=== PATIENT | female | born 1985 | race Caucasian/White ===

== ENCOUNTER 2016-09-29 06:43 | Outpatient (CLI) | payer OTHER | END 2016-09-29 06:44 | disposition home or self-care (01) | DX: Z00.00 Encounter for general adult medical examination without abnormal findings (principal); R53.83 Other fatigue ==

== ENCOUNTER 2017-01-21 08:00 | Outpatient (CLI) | payer OTHER | END 2017-01-21 08:01 | disposition home or self-care (01) | DX: R31.9 Hematuria, unspecified (principal) ==

== ENCOUNTER 2019-04-20 08:00 | Outpatient (CLI) | payer OTHER ==
[2019-04-20 12:27] LABS: BASOPHILS # (AUTO) 0.1 10^3/uL (0.0-0.1); BASOPHILS % (AUTO) 0.8 %; EOSINOPHILS # (AUTO) 0.2 10^3/uL (0.0-0.7); EOSINOPHILS % (AUTO) 2.3 %; HGB - HEMOGLOBIN 13.6 g/dL (12.0-16.0); LYMPHOCYTES # (AUTO) 2.5 10^3/uL (1.5-3.5); LYMPHOCYTES % (AUTO) 29.2 %; MEAN CORPUSCULAR HEMOGLOBIN 25.8 pg (27.0-31.0); MEAN CORPUSCULAR HGB CONC 30.2 g/dL (32.0-36.0); MEAN CORPUSCULAR VOLUME 85.4 fL (81.0-99.0); MEAN PLATELET VOLUME 9.6 fL (7.9-10.8); MONOCYTES # (AUTO) 0.4 10^3/uL (0.0-1.0); MONOCYTES % (AUTO) 4.3 %; NEUTROPHILS # (AUTO) 5.4 10^3/uL (1.5-6.6); NEUTROPHILS % (AUTO) 63.1 %; PLT - PLATELET COUNT 382 10^3/uL (130-450); RED BLOOD COUNT 5.28 10^6/uL (4.20-5.40); RED CELL DISTRIBUTION WIDTH 14.6 % (12.0-15.0); WHITE BLOOD COUNT 8.6 x10^3/uL (4.8-10.8)
[2019-04-20 12:56] LABS: ALBUMIN 4.2 g/dL (3.2-5.5); ALBUMIN/GLOBULIN RATIO 1.1 (1.0-2.2); ALKALINE PHOSPHATASE 65 IU/L (42-121); ALT ALANINE AMINOTRANSFERASE 19 IU/L (10-60); AST ASPARTATE AMINOTRANSFERASE 22 IU/L (10-42); BILIRUBIN,TOTAL 0.5 mg/dL (0.2-1.0); BUN - BLOOD UREA NITROGEN 10 mg/dL (6-20); CALCIUM 9.3 mg/dL (8.5-10.3); CARBON DIOXIDE - CO2 24 mmol/L (21-32); CHLORIDE 108 mmol/L (101-111); CHOL/HDL RATIO 4.8 (<4.4); CHOLESTEROL 210 mg/dL; CREATININE 0.6 mg/dL (0.4-1.0); GFR - MDRD 114 (>89); GLUCOSE 106 mg/dL (70-100); HDL CHOLESTEROL 44 mg/dL; LDL CHOLESTEROL,CALCULATED 146 mg/dL; LDL/HDL RATIO 3.3 (<4.4); SODIUM 141 mmol/L (135-145); VLDL CHOLESTEROL 20 mg/dL
== END 2019-04-20 23:59 | disposition home or self-care (01) ==
LOC: LAB.WCP 08:00
PROVIDERS: ATTEND Physician Assistant Medical
DX: Z00.00 Encounter for general adult medical examination without abnormal findings (principal); R20.2 Paresthesia of skin
CPT/HCPCS: 36415; 80053; 80061; 82607; 83721; 84443; 85025

== ENCOUNTER 2020-11-25 16:41 | Outpatient (CLI) | payer OTHER | END 2020-11-25 16:42 | disposition home or self-care (01) | LOC: COV 16:41 | PROVIDERS: ATTEND Family Medicine | DX: R05 Cough (principal); R06.02 Shortness of breath; M79.10 Myalgia, unspecified site; R53.83 Other fatigue; R68.83 Chills (without fever); R07.0 Pain in throat; R43.8 Other disturbances of smell and taste; R09.81 Nasal congestion; J34.89 Other specified disorders of nose and nasal sinuses; Z20.822 Contact with and (suspected) exposure to COVID-19 ==

== ENCOUNTER 2021-11-04 08:00 | Outpatient (CLI) | payer OTHER | END 2021-11-04 23:59 | LOC: LAB.N 08:00 | PROVIDERS: ATTEND Family Medicine | DX: L02.31 Cutaneous abscess of buttock (principal); L02.213 Cutaneous abscess of chest wall | CPT/HCPCS: 87070; 87205 ==

== ENCOUNTER 2022-01-07 23:32 | Emergency (ER) | payer OTHER ==
[2022-01-07 23:42] VITALS: BP 170/98
--- NOTE | 2022-01-07 23:51 | ED Physician Documentation ---
History of Present Illness - Stated complaint Stated Complaint: LT CALF BUMP/PX - Chief complaint Chief Complaint: Ext Problem - History obtained from History obtained from: Patient - Additonal information Additional information: Patient is a 36-year-old female with a history of hypertension presenting for evaluation of a redness to the left calf that she noticed 2 days ago. She has noticed that the redness has increased in size and at times she feels tenderness to the area. She denies any known injury. She has a new puppy and other dogs but denies any known scratches or bites to the area. No fevers, rashes elsewhere, chest pain, difficulty breathing. Review of Systems Constitutional: denies: Fever Nose: denies: Congestion Cardiac: denies: Chest pain / pressure, Palpitations Respiratory: denies: Dyspnea, Cough GI: denies: Abdominal Pain Skin: reports: Rash Musculoskeletal: denies: Back pain Neurologic: denies: Headache PD PAST MEDICAL HISTORY - Past Medical History Past Medical History: Yes Cardiovascular: Hypertension Respiratory: Asthma Neuro: None Endocrine/Autoimmune: None GI: GERD PRICING DIRECTOR: None : None HEENT: None Psych: None Musculoskeletal: None Derm: Rosacea - Past Surgical History Past Surgical History: Yes General: Cholecystectomy, Other /PRICING DIRECTOR: section, Tubal ligation - Present Medications Home Medications: Ambulatory Orders Medication Instructions Recorded Confirmed Losartan [Cozaar] 50 mg PO DAILY 01/07/22 01/07/22 cephALEXin [Keflex] 500 mg PO Q6H #28 cap 01/07/22 - Allergies Allergies/Adverse Reactions: Allergies Allergy/AdvReac Type Severity Reaction Status Date / Time ranitidine HCl * Allergy Intermediate EPISTAXIS Verified 01/07/22 23:42 [From Zantac] erythromycin base Allergy Unknown UNKNOWN Verified 01/07/22 23:42 [Erythromycin Base] Penicillins Allergy Unknown UNKNOWN Verified 01/07/22 23:42 - Social History Does the pt smoke?: No Smoking Status: Never smoker Does the pt drink ETOH?: No Does the pt have substance abuse?: No - Immunizations Immunizations are current?: Yes - POLST Patient has POLST: No PD ED PE NORMAL - General General: Alert and oriented X 3, No acute distress, Well developed/nourished - HEENT HEENT: Atraumatic, Moist mucous membranes - Neck Neck: Supple, no meningeal sign - Cardiac Cardiac: RRR, Strong equal pulses - Respiratory Respiratory: No respiratory distress, Clear bilaterally - Extremities Extremities: Other (1 cm area of dark erythema with no underlying fluctuance, no's visible skin breaks, mild surrounding erythema, no lymphangitis, intact distal pulses, compartments of leg are soft, no bony tenderness) PD ED PE EXPANDED - Extremities ERIC LE visual: 1 - rash 2 - rash Results - Vitals Vitals: Vital Signs - 24 hr 01/07/22 23:34 Temperature 35.8 C L Heart Rate 100 Respiratory 17 Rate Blood Pressure 170/98 H O2 Saturation 97 Oxygen O2 Source Room air PD MEDICAL DECISION MAKING - ED course ED course: Patient presenting for evaluation of rash to the left calf. No signs of visible skin breaks. No lymphangitic spread. No palpable fluctuance to suggest abscess. Patient denies concern for foreign body. Appears to have soft tissue skin infection. No history of MRSA and wound is not purulent or weeping. We will start patient on Keflex. Patient is aware of return precautions. Departure - Departure Disposition: 01 Home, Self Care Clinical Impression: Cellulitis of left leg without foot Condition: Stable Instructions: ED Infec Skin Cellulitis Prescriptions: cephALEXin [Keflex] 500 mg PO Q6H #28 cap Comments: Audra you were evaluated for a rash to your left calf. I believe this is a skin infection. At this time I do not feel an abscess which would require making a small cut in the skin and allowing any infection to drain out. Please use the antibiotic that I have prescribed. A prescription was sent to the [facility] in [place]. If it anytime it seems that the rash seems to be worsening, you develop swelling, fever or any other concerns please return to the emergency department. Discharge Date/Time: 01/07/22 23:59
[2022-01-07] MEDS: cephALEXin 250 MG CAPSULE PO STA (23:56)
== END 2022-01-07 23:59 | disposition home or self-care (01) ==
LOC: ED 23:32
DX: L03.116 Cellulitis of left lower limb (principal); I10 Essential (primary) hypertension
CPT/HCPCS: 99282

== ENCOUNTER 2022-12-07 08:27 | Outpatient (CLI) | payer OTHER ==
[2022-12-07 13:03] LABS: BASOPHILS # (AUTO) 0.1 10^3/uL (0.0-0.1); BASOPHILS % (AUTO) 1.1 %; EOSINOPHILS # (AUTO) 0.3 10^3/uL (0.0-0.7); EOSINOPHILS % (AUTO) 3.6 %; HCT - HEMATOCRIT 41.6 % (37.0-47.0); HGB - HEMOGLOBIN 12.4 g/dL (12.0-16.0); LYMPHOCYTES # (AUTO) 2.7 10^3/uL (1.5-3.5); LYMPHOCYTES % (AUTO) 29.5 %; MEAN CORPUSCULAR HEMOGLOBIN 25.3 pg (27.0-31.0); MEAN CORPUSCULAR HGB CONC 29.8 g/dL (32.0-36.0); MEAN CORPUSCULAR VOLUME 84.9 fL (81.0-99.0); MEAN PLATELET VOLUME 9.5 fL (7.9-10.8); MONOCYTES # (AUTO) 0.5 10^3/uL (0.0-1.0); MONOCYTES % (AUTO) 5.1 %; NEUTROPHILS # (AUTO) 5.4 10^3/uL (1.5-6.6); NEUTROPHILS % (AUTO) 60.3 %; PLT - PLATELET COUNT 374 10^3/uL (130-450); RED CELL DISTRIBUTION WIDTH 14.6 % (12.0-15.0)
[2022-12-07 13:35] LABS: ALBUMIN 3.6 g/dL (3.2-5.5); ALBUMIN/GLOBULIN RATIO 0.9 (1.0-2.2); ALKALINE PHOSPHATASE 75 IU/L (42-121); ALT ALANINE AMINOTRANSFERASE 17 IU/L (10-60); AST ASPARTATE AMINOTRANSFERASE 19 IU/L (10-42); BILIRUBIN,TOTAL 0.3 mg/dL (0.2-1.0); BUN - BLOOD UREA NITROGEN 9 mg/dL (6-20); CALCIUM 8.6 mg/dL (8.5-10.3); CARBON DIOXIDE - CO2 26 mmol/L (21-32); CHLORIDE 105 mmol/L (101-111); CHOL/HDL RATIO 5.3 (<4.4); CHOLESTEROL 205 mg/dL; CREATININE 0.6 mg/dL (0.4-1.0); GFR - MDRD 112 (>89); GLUCOSE 137 mg/dL (70-100); HDL CHOLESTEROL 39 mg/dL; LDL CHOLESTEROL,CALCULATED 138 mg/dL; LDL/HDL RATIO 3.5 (<4.4); POTASSIUM 4.3 mmol/L (3.5-5.0); SODIUM 136 mmol/L (135-145); TOTAL PROTEIN 7.6 g/dL (6.7-8.2); TRIGLYCERIDES 142 mg/dL; VLDL CHOLESTEROL 28 mg/dL
[2022-12-07 13:40] LABS: THYROID STIMULATING HORMONE 3.12 uIU/mL (0.34-5.60)
== END 2022-12-07 08:28 | disposition home or self-care (01) ==
LOC: LAB.N 08:27
PROVIDERS: ATTEND Physician Assistant Medical
DX: Z00.00 Encounter for general adult medical examination without abnormal findings (principal)
CPT/HCPCS: 36415; 80053; 80061; 83721; 84443; 85025

== ENCOUNTER 2022-12-17 08:29 | Outpatient (CLI) | payer OTHER ==
[2022-12-17 12:17] LABS: ESTIMATED AVERAGE GLUCOSE 151 mg/dL (70-100); HEMOGLOBIN A1c% 6.9 % (4.27-6.07)
== END 2022-12-17 08:30 | disposition home or self-care (01) ==
LOC: LAB.N 08:29
PROVIDERS: ATTEND Physician Assistant Medical
DX: R73.9 Hyperglycemia, unspecified (principal)
CPT/HCPCS: 36415; 83036

== ENCOUNTER 2023-03-03 08:34 | Outpatient (CLI) | payer OTHER ==
--- NOTE | 2023-03-03 09:16 | SLEEP CARE CONSULTATION ---
Information from patient questionnaire entered by Sujey Quinones. I have reviewed and concur with the information entered by Sujey Quinones. This document represents the service I personally performed and the decisions made by me, Maddi Arce ARNP. History of Present Illness Service Date and Time: 03/03/2023 0834 Reason for Visit: New patient Chief Complaint: reports: Snoring, Fatigue, Frequent awakenings at night Date of Onset: SNORING YRS FATIGUE AROUND 1 YR FREQUENT AWAKENINGS 6MONTHS Usual bedtime: 10-11PM Time it takes to fall asleep: 5MINS Snores at night: Yes Observed to quit breathing while asleep: No Sleeps alone due to snoring: No Number of times waking at night: 6-7 Reasons for waking at night: reports: Gasping for air (occasionally), Bathroom, Other (UNKNOWN; uncomfortable). denies: Choking, Snoring Toss, Turn, or Twitch while sleeping: Yes (because of being uncomfortable) Recalls having dreams: Yes Usually gets out of bed at: 7AM Feels refreshed in the morning: No Morning headache: No Sleepy or fatigued during the day: Yes Ever fallen asleep while driving: No Takes day naps: Yes (1 time a week; 2-3 hours long) Dreams during day naps: No Prior sleep studies: No Additional HPI information: I had the pleasure of seeing KALI SIM today regarding the possibility of her having a sleep disorder. Her current complaints are snoring, fatigue and frequent night awakenings. She is setting up to get bariatric surgery, gastric bypass, and comes in to have evaluation for sleep apnea. She states she has snored for a long time. She does not wake up feeling refreshed. She is waking up 5-7 times a night for the bathroom and to shift her position due to being uncomfortable. She states she normally does not nap but about once a week gets so tired she will go to sleep for a couple hours. She has woke up gasping for air with her heart pounding in the past. She denies waking up from her snoring. She denies every being told that she stops breathing at night when sleeping. - Parasomnia Symptoms Ever been unable to move upon waking from sleep: No Walks in sleep: No Talks in sleep: Yes Ever acted out dreams in sleep: Yes ("petting the pillow" when dreaming of petting one of her animals) Ever felt weak in the knees when startled or emotional: Yes (has not fallen to ground) Bothered by creepy, crawly, restless sensations in legs: No Problems with memory or concentration: No Subjective Initial [place] Sleepiness Scale score: 9 (03/03/23) Past Medical History Past Medical History: reports: Hypertension, Diabetes, Anxiety, Asthma, Other (MONITORED PULMONARY STENOSIS, OBESITY IN PROCESS OF GASTRIC BYPASS; cholecystectomy) Social History The patient's occupation is a SE. Patient is and lives in [place]. Have you smoked in the past 12 months: No Years of smokin Quit date: 2011 Alcohol use: Yes Alcohol amount and frequency: 1 DRINK MAYBE 1 X A YR Caffeine use: Yes Caffeine amount and frequency: 1-2 CUPS PER DAY SOMETIMES ESPRESSO Family History Family history of sleep disordered breathing: No Allergies and Home Medications Known drug allergies: Yes (as listed) Drug allergies reviewed: Yes Home medication list reviewed: Yes Allergy and home medication list: Allergies ranitidine HCl * [From Zantac] Allergy (Intermediate, Verified 03/02/23 13:11) EPISTAXIS erythromycin base [Erythromycin Base] Allergy (Unknown, Verified 03/02/23 13:11) UNKNOWN Penicillins Allergy (Unknown, Verified 03/02/23 13:11) UNKNOWN Medications: Metformin Losartan Flovent Tylenol, prn Review of Systems Weight gain over past 5 years: 50 Cardiovascular: reports: high blood pressure, palpitations, leg or foot swelling Respiratory: reports: shortness of breath, wheeze Gastrointestinal: reports: heartburn, nausea, diarrhea Urinary: reports: urgency Neurological: reports: headaches Psychiatric: reports: anxiety, claustrophobia Ear/Nose/Throat: reports: wisdom teeth removed. denies: sinus problems, tonsillectomy Endocrine: reports: sluggishness Musculoskeletal: reports: back pain Immunologic: reports: allergies to food or environment Physical Exam Vital signs obtained and entered by: SUJEY Adkins MA Blood Pressure: 138/84 (LEFT ARM) Cuff size: long Heart Rate: 82 O2 Saturation: 98 Height: 5 ft 4 in Weight: 325 lb 9.6 oz Body Mass Index: 55.8 BMI Classification: Morbidly Obese Neck circumference: 17.5 Nostrils: patent to airflow Mouth and throat: narrow oropharynx Soft palate: long Hard palate: normal Uvula: normal Uvula visualization: 25% Mallampati Class III Tongue: normal in size Tonsils: 2+ Neck: normal w/o lymphadenopathy or thyromegaly Heart: regular rate and rhythm Lungs: clear bilaterally Impression and Plan 1. Suspected Obstructive Sleep Apnea-Hypopnea Syndrome, as suggested by a history of loud and irregular snoring, gasping or choking in sleep, frequent awakening during the night, unrefreshed sleep, and excessive daytime sleepiness. Narrow oropharynx and obesity are common predisposing factors for obstructive sleep apnea-hypopnea syndrome. I recommend proceeding to polysomnography to confirm the diagnosis and to assess severity. If the patient has significant sleep disordered breathing, a manual CPAP titration study will also be performed to find the optimal treatment pressure. I informed the patient of what the sleep studies involve and after some discussion, obtained agreement to proceed. The pathophysiology of obstructive sleep apnea-hypopnea syndrome was discussed with the patient and health risks of cardiovascular and cerebrovascular disease if not treated. Risks of drowsy driving discussed in detail and patient advised to avoid long distance driving and to hide puller at the first sign of drowsiness. Patient agreed to plan. * Schedule polysomnography +- manual CPAP titration study and return in 1-2 weeks after the study to discuss result and initiate therapy. * Avoid long distance driving or driving when feeling sleepy. * Avoid alcohol, sedative and muscle relaxant around bedtime. * Attempt to lose weight. * Review instructions provided by trained office staff on how to prepare for the sleep study. * Return for follow-up after sleep study completed. Counseling Topics: Weight loss health impact Visit Type: In Office Time Spent with Patient (minutes): 30 Provider Statement: I spent 100% of the Face to Face Visit with the patient with greater than 50% spent counseling the patient and coordination of care.
[2023-03-03 09:17] VITALS: BP 138/84
== END 2023-03-03 08:35 | disposition home or self-care (01) ==
LOC: SC 08:34
PROVIDERS: ATTEND Nurse Practitioner Family
DX: R06.83 Snoring (principal); R53.83 Other fatigue; G47.8 Other sleep disorders; G47.10 Hypersomnia, unspecified; E66.01 Morbid (severe) obesity due to excess calories; Z68.43 Body mass index [BMI] 50.0-59.9, adult; Z87.891 Personal history of nicotine dependence
CPT/HCPCS: 99203; 99212

== ENCOUNTER 2023-04-15 08:25 | Outpatient (CLI) | payer OTHER ==
[2023-04-15 12:04] LABS: BASOPHILS # (AUTO) 0.1 10^3/uL (0.0-0.1); BASOPHILS % (AUTO) 0.8 %; EOSINOPHILS # (AUTO) 0.4 10^3/uL (0.0-0.7); EOSINOPHILS % (AUTO) 3.5 %; HCT - HEMATOCRIT 43.4 % (37.0-47.0); HGB - HEMOGLOBIN 13.4 g/dL (12.0-16.0); LYMPHOCYTES # (AUTO) 2.5 10^3/uL (1.5-3.5); LYMPHOCYTES % (AUTO) 24.1 %; MEAN CORPUSCULAR HEMOGLOBIN 25.8 pg (27.0-31.0); MEAN CORPUSCULAR HGB CONC 30.9 g/dL (32.0-36.0); MEAN CORPUSCULAR VOLUME 83.5 fL (81.0-99.0); MEAN PLATELET VOLUME 9.6 fL (7.9-10.8); MONOCYTES # (AUTO) 0.5 10^3/uL (0.0-1.0); MONOCYTES % (AUTO) 4.3 %; NEUTROPHILS # (AUTO) 7.1 10^3/uL (1.5-6.6); PLT - PLATELET COUNT 455 10^3/uL (130-450); RED CELL DISTRIBUTION WIDTH 14.8 % (12.0-15.0); WHITE BLOOD COUNT 10.5 x10^3/uL (4.8-10.8)
[2023-04-16 20:07] LABS: FOLATE HEMOLYSATE 378.1 ng/mL (Not Estab.); FOLATE RBC 894 ng/mL (>498); HEMATOCRIT 42.3 % (34.0-46.6)
== END 2023-04-15 08:26 | disposition home or self-care (01) ==
LOC: LAB.N 08:25
PROVIDERS: ATTEND Surgery
DX: I10 Essential (primary) hypertension (principal); E66.01 Morbid (severe) obesity due to excess calories; Z68.43 Body mass index [BMI] 50.0-59.9, adult; E11.9 Type 2 diabetes mellitus without complications; E78.9 Disorder of lipoprotein metabolism, unspecified
CPT/HCPCS: 36415; 82746; 82747; 84425; 84443; 85014; 85025

== ENCOUNTER 2023-04-16 08:00 | Outpatient (CLI) | payer OTHER ==
[2023-04-16 13:33] LABS: THYROID STIMULATING HORMONE 2.61 uIU/mL (0.34-5.60)
== END 2023-04-16 23:59 | disposition home or self-care (01) ==
LOC: LAB.N 08:00
PROVIDERS: ATTEND Physician Assistant Medical
DX: E11.9 Type 2 diabetes mellitus without complications (principal); I10 Essential (primary) hypertension; E78.9 Disorder of lipoprotein metabolism, unspecified; E66.01 Morbid (severe) obesity due to excess calories; Z68.43 Body mass index [BMI] 50.0-59.9, adult
CPT/HCPCS: 36415; 82746; 84443

== ENCOUNTER 2023-04-16 19:01 | Outpatient (CLI) | payer OTHER | END 2023-04-16 19:02 | disposition home or self-care (01) | LOC: SC 19:01 | PROVIDERS: ATTEND Nurse Practitioner Family | DX: G47.33 Obstructive sleep apnea (adult) (pediatric) (principal); E66.01 Morbid (severe) obesity due to excess calories; Z68.43 Body mass index [BMI] 50.0-59.9, adult | CPT/HCPCS: 95810 ==

== ENCOUNTER 2023-04-27 11:31 | Outpatient (CLI) | payer OTHER ==
--- NOTE | 2023-04-27 15:48 | SLEEP CARE CONSULTATION ---
Information from patient questionnaire entered by Larisa Quinones. I have reviewed and concur with the information entered by Larisa Quinones. This document represents the service I personally performed and the decisions made by me, Maddi Arce ARNP. History of Present Illness Service Date and Time: 04/27/2023 1131 Initial [place] Sleepiness Scale score: 9 (03/03/23) Current [place] Sleepiness Scale score: 9 (04/27/23) Additional HPI information: KALI SIM returns via video telehealth visit for follow up and results of the recently performed polysomnography. I explained the pathophysiology behind obstructive sleep apnea. We then spent quite a bit of time discussing different treatment options. For mild obstructive sleep apnea, surgery and oral appliance are alternatives to nasal CPAP therapy but in moderate or severe cases, nasal CPAP is the most effective and reliable treatment. I reviewed the impact of weight changes on sleep apnea and strongly recommended losing weight. After some discussion, the patient opted to go with the nasal CPAP therapy. Nasal autoCPAP set at 4-15 cmH20 will be ordered with rationale explained. A manual titration study will be ordered if unable to find optimal pressure with office adjustments. I explained how CPAP machine works and what to expect when using the machine. Using CPAP every night in order to get used to it was emphasized. Patient advised to put CPAP mask on before getting into bed so as not to fall asleep without CPAP. To assist acclimation to CPAP use, it could also be used for a short time during day while reading or watching TV. The patient was instructed to call the CPAP supplier to discuss any mechanical problem that may occur. If the mask given is uncomfortable or is difficult to keep on through the night even with adjustment, contact the CPAP supplier as many will replace with another mask style if notified before 30 days. If snoring or perceives is not getting enough air or too much air from the machine, notify this office. Patient does not drink alcohol. Patient was cautioned about risks of drowsy driving until sleepiness symptoms resolve. Patient denies drowsy driving. Sleep Study - Results Type of Sleep Study: Polysomnography (COMPLETED 04/16/23) Prior sleep studies: No Polysomnography/Home Sleep Study results: IMPRESSION: The quality of the study is good. The patient had normal sleep efficiency. Despite moderate sleep fragmentation, the sleep architecture was also normal. Respiratory monitoring showed severe obstructive sleep apnea-hypopnea (AHI = 33.8) associated with frequent arousals, oxyhemoglobin desaturation and moderate hypoxia (harsha oxygen saturation of 64%). The respiratory events occurred independently of sleep stage and body position (supine AHI = 34.0; non-supine = 34.00). Snore was loud in intensity. There was no significant periodic leg movement of sleep. Cardiac rhythm was normal sinus rhythm without significant arrhythmia. No abnormal behavior (parasomnia) observed during the night. Allergies and Home Medications Known drug allergies: Yes (as listed) Drug allergies reviewed: Yes Home medication list reviewed: Yes (no changes) Allergy and home medication list: Allergies ranitidine HCl * [From Zantac] Allergy (Intermediate, Verified 04/27/23 11:07) EPISTAXIS erythromycin base [Erythromycin Base] Allergy (Unknown, Verified 04/27/23 11:07) UNKNOWN Penicillins Allergy (Unknown, Verified 04/27/23 11:07) UNKNOWN Review of Systems Review of systems same as previous: Yes (no changes) Physical Exam Vital signs obtained and entered by: LARISA Adkins MA Height: 5 ft 4 in (PER PT) Weight: 317 lb (PER PT) Body Mass Index: 54.3 BMI Classification: Morbidly Obese Impression and Plan 1. Obstructive Sleep Apnea-Hypopnea Syndrome, severe, with lowest oxygen saturation of 64%. Obviously this is the cause of the patients symptoms of unrefreshed sleep, and excessive daytime sleepiness. Positive pressure therapy could benefit hypertension, diabetes, asthma and anxiety. As mentioned above, the patient will be started on nasal autoCPAP therapy with pressure set at 4-15 cmH2O. A manual titration study will be completed if unable to find optimal treatment pressure with office adjustments. Compliance guidelines also reviewed. A copy of compliance guidelines will be given for reference at check out. 2. Hypoxemia, moderate, with a harsha oxygen saturation of 64% and 223.5 minutes spent under 90%. Her baseline oxygen saturation was low normal with an average oxygen saturation of 88%. * Nasal auto CPAP therapy, pressure at 4-15 cm H2O. * Attempt to lose weight. * Avoid alcohol consumption near bedtime. * Avoid supine sleep until using CPAP. * The patient is again cautioned about driving until sleepiness completely resolves. * Return one month after CPAP obtained. I will assess response to therapy and compliance at that time. Counseling Topics: Weight loss health impact Visit Type: Telehealth Video Video Type: Doximity Patient Location: Home Location of Provider: Office Patient agrees and consents to this telehealth visit type: Yes Patient agrees to have their insurance billed: Yes Time Spent with Patient (minutes): 18 Provider Statement: I spent 100% of the Telehealth Video Call with the patient with greater than 50% spent counseling the patient and coordination of care.
== END 2023-04-27 11:32 | disposition home or self-care (01) ==
LOC: SC 11:31
PROVIDERS: ATTEND Nurse Practitioner Family
DX: G47.33 Obstructive sleep apnea (adult) (pediatric) (principal); R09.02 Hypoxemia; E66.01 Morbid (severe) obesity due to excess calories; Z68.43 Body mass index [BMI] 50.0-59.9, adult

== ENCOUNTER 2023-07-08 08:34 | Outpatient (CLI) | payer OTHER ==
--- NOTE | 2023-07-08 09:03 | Sleep Patient Instructions ---
Sleep Center Visit Summary - Patient Visit Information Reason for Visit: First compliance visit with PAP therapy - Patient Instructions Additional Instructions: You were here for follow up of CPAP therapy. You will be continued on CPAP therapy with pressure at 8-12 cmH2O. Please let us know if the pressure change is uncomfortable and we can make further adjustments of the pressure. You should follow up with sleep care in 1-2 months. Continue to try to lose weight. You may contact us sooner for any questions or concerns. - Clinic Information Contact: [facility] [address] [place] [id number] [email or web address] T: [phone]
--- NOTE | 2023-07-08 09:08 | SLEEP CARE CONSULTATION ---
Information from patient questionnaire entered by Larisa Quinones. I have reviewed and concur with the information entered by Larisa Quinones. This document represents the service I personally performed and the decisions made by me, Maddi Arce ARNP. History of Present Illness Service Date and Time: 07/08/2023 0834 Previous diagnosis: Severe, Obstructive Sleep Apnea-Hypopnea Syndrome AHI: 33.8 (04/2023) Reason for follow up: first compliance (SET UP 05/04/23) Equipment type: CPAP (ResMed Airsense 10, s/u 04/2023) Equipment obtained from: Other ([facility]; got initial supplies) Mask style: Full face Mask brand: [employer] (Simplus) Backup mask available: No (will keep old mask when replaced) Last cushion change: rotating mask cushions Prior sleep studies: No Type of Sleep Study: Polysomnography (COMPLETED 04/16/23) HPI additional information: KALI SIM was diagnosed to have severe, AHI 33.8, obstructive sleep apnea- hypopnea syndrome and returned today for CPAP therapy first compliance follow- up. Sleep Study - Results Type of Sleep Study: Polysomnography (COMPLETED 04/16/23) Prior sleep studies: No CPAP Compliance Data - Data Reviewed with Patient Average duration of nightly device use: 6 HRS 37 MINS Compliance rate %: 73 (05/11/23-07/05/23; ) Current pressure setting (cmH2O): 4-15 (median 8.1, avg 11.8, max 12.9) Average residual AHI: 1.1 Central apnea: 0.1 Obstructive apnea: 0.3 Average large leak: 2.8 L/min Subjective Missed days of use due to: reports: illness, other (irritation) Patient concerns: reports: mask discomfort, air blowing in eyes, mask leak noise, dry mouth, nose, throat. denies: aerophagia, condensation in mask/hose, nasal congestion, epistaxis Observed to snore while using device: No Current pressure setting perceived as: comfortable On therapy, patient: reports: other (having less headaches). denies: drowsiness while driving Initial [place] Sleepiness Scale score: 9 (03/03/23) Current [place] Sleepiness Scale score: 6 Allergies and Home Medications Known drug allergies: Yes (as listed) Drug allergies reviewed: Yes Home medication list reviewed: Yes (prilosec, multivitamin, calcium) Allergy and home medication list: Allergies ranitidine HCl * [From Zantac] Allergy (Intermediate, Verified 07/07/23 09:31) EPISTAXIS erythromycin base [Erythromycin Base] Allergy (Unknown, Verified 07/07/23 09:31) UNKNOWN Penicillins Allergy (Unknown, Verified 07/07/23 09:31) UNKNOWN Review of Systems Review of systems same as previous: No (gastric bypass 06/21/2023) Physical Exam Vital signs obtained and entered by: MADDI CONSTANTINO Blood Pressure: 116/81 Cuff size: wrist (left) Heart Rate: 77 O2 Saturation: 95 Height: 5 ft 4 in (PER PT) Weight: 292 lb Weight change since last visit: 25 lb loss Body Mass Index: 50.1 BMI Classification: Morbidly Obese Impression and Plan 1. Obstructive Sleep Apnea-Hypopnea Syndrome, severe, with good treatment compliance and good apnea control. On CPAP therapy, the patient has been having less headaches. She tolerated the CPAP well in the beginning but lately has had more difficulties but states the pressure has been comfortable. The patients pressure will be changed to autoCPAP 8-12 cmH20 to reflect pressure being used. Patient advised to contact me if pressure change is uncomfortable so that it can be adjusted. Goals for apnea control discussed. She has had more air leaking into her eyes, mask leak noises and discomfort. She is also in the last few nights waking up with very dry mouth. She states her humidity is set on automatic. It appears that she is getting some large mask leaks. She has been rotating through 3 masks. I advised her to reach out to her DME to get new supplies since mask cushions will wear out need to be changed regularly. This could be contributing to the mask leak noises, air blowing in her eyes and dry mouth. She voiced understanding and agreement with plan of care. Patient's apnea severity and rationale for treatment to reduce apnea, improve sleep quality and reduce cardiovascular and cerebrovascular events was reviewed. I also reviewed the benefit of consistent device use of CPAP for hypertension, diabetes and anxiety. 2. Obesity, unspecified. Currently patients BMI is 50.1. She had a gastric bypass surgery on 06/21/2023 to assist with weight loss and has lost 25 pounds since we last saw her in the office. Obesity increases the risk of apnea, CPAP pressure requirements and overall health risks especially cardiovascular and diabetes. Thus patient is advised to continue to try to lose weight. * Change auto CPAP pressure to 8-12 cmH2O * Notify me if snoring with mask or feeling that the pressure is too much or too little * Continue to try to lose weight * Call this office if any problems using CPAP * Return for follow up in 1-2 months, or sooner if concerns arise Counseling Topics: Spare mask, Weight loss health impact Follow up with Sleep Care in: 1-2 months Visit Type: In Office Time Spent with Patient (minutes): 27 Provider Statement: I spent 100% of the Face to Face Visit with the patient with greater than 50% spent counseling the patient and coordination of care.
[2023-07-08 09:16] VITALS: BP 116/81; O2SAT 95
== END 2023-07-08 08:35 | disposition home or self-care (01) ==
LOC: SC 08:34
PROVIDERS: ATTEND Nurse Practitioner Family
DX: G47.33 Obstructive sleep apnea (adult) (pediatric) (principal); E66.01 Morbid (severe) obesity due to excess calories; Z68.43 Body mass index [BMI] 50.0-59.9, adult; Z98.84 Bariatric surgery status
CPT/HCPCS: 99212; 99213